=== PATIENT | female | born 1990 | race Two or more races ===

== ENCOUNTER 2022-03-18 15:14 | Emergency (ER) | payer SELFPAY ==
[~2022-03-18] VITALS: Ht 154.9 cm; Wt 59.0 kg
[2022-03-18 15:30] VITALS: BP 120/90
== END 2022-03-18 15:30 | disposition left against medical advice (07) ==
LOC: ER 15:14 → EDBD 15:14 → ER 15:30
DX: F41.9 Anxiety disorder, unspecified (principal); M79.10 Myalgia, unspecified site; F17.210 Nicotine dependence, cigarettes, uncomplicated; Z53.29 Procedure and treatment not carried out because of patient's decision for other reasons